=== PATIENT | male | born 1935 | race Caucasian/White ===

== ENCOUNTER 2016-10-01 07:32 | Outpatient (CLI) | payer MEDICARE, OTHER ==
[2015-02-16 22:47] VITALS: BP 126/70
[2016-10-01 08:16] LABS: BASOPHILS % 0.4 (0.0-1.5); EOSINOPHILS % 6.3 % (0.0-6.8); MEAN CORPUSCULAR VOLUME 96.8 fl (80.0-100.0); NEUTROPHILS # 4.5 # k/uL (1.4-7.7)
[2016-10-01 08:48] LABS: eGFR (African) > 60; eGFR (Non-African) > 60
== END 2016-10-01 07:33 ==
LOC: LAB 07:32
PROVIDERS: ATTEND Family Medicine
DX: I10 Essential (primary) hypertension (principal); R05 Cough
CPT/HCPCS: 36415; 80053; 85025

== ENCOUNTER 2017-06-11 14:47 | Outpatient (CLI) | payer MEDICARE, OTHER ==
[2015-02-16 22:47] VITALS: BP 126/70
[2017-06-11 15:04] LABS: BASOPHILS % 0.3 (0.0-1.5); MEAN CORPUSCULAR HEMOGLOBIN 33.2 pg (28.0-34.0); MEAN CORPUSCULAR VOLUME 95.5 fl (80.0-100.0); MONOCYTES % 5.7 % (0.0-11.0); NEUTROPHILS # 4.5 # k/uL (1.4-7.7)
[2017-06-11 15:27] LABS: eGFR (African) > 60; eGFR (Non-African) > 60
--- NOTE | 2017-06-11 16:44 | Diagnostic Imaging Report ---
LE ALVARES [facility] [address] [facility] [address] [address] Report Submission Date: Jun 11, 2017 3:31:11 PM ELECTRICIAN REFINERY Patient Study Name: YANDEL BEST Date: Jun 11, 2017 3:12:49 PM ELECTRICIAN REFINERY Modality Type: DX Gender: M Description: CHEST : 33 Institution: [facility] Physician: LE ALVARES Examination: PA and lateral History: Evaluate lungs. SOA, COUGH X 2 MONTHS (Hx) Comparison exam: None available. Findings: PA and lateral views of the chest demonstrates a normal cardiac and mediastinal silhouette. Elevated right hemidiaphragm. Vascular calcifications involving the aortic arch. Right lower lung parenchymal scarring. Lung tam without focal infiltrate. No blunting of the costophrenic margins. Right-sided pacemaker. Articular degenerative changes. Impression: Parenchymal scarring. No acute appearing pulmonary process. Electronically signed on Jun 11, 2017 3:31:11 PM ELECTRICIAN REFINERY by: Jason SOFIA
== END 2017-06-11 14:55 ==
LOC: RT 14:47
PROVIDERS: ATTEND Family Medicine
DX: R06.02 Shortness of breath (principal); R53.83 Other fatigue
CPT/HCPCS: 36415; 71046; 80053; 84443; 85025

== ENCOUNTER 2018-07-22 09:49 | Outpatient (CLI) | payer MEDICARE, OTHER ==
[2015-02-16 22:47] VITALS: BP 126/70
--- NOTE | 2018-07-22 10:41 | Diagnostic Imaging Report ---
LE ALVARES [facility] [address] [facility].[address] [address] Report Submission Date: Jul 22, 2018 10:38:00 AM CDT Patient Study Name: YANDEL BEST Date: Jul 22, 2018 9:59:22 AM CDT Modality Type: DX Gender: M Description: RIBS UNILAT 2 VIEWS : 33 Institution: [facility] Physician: LE ALVARES Examination: Plain film right ribs History: Injury Findings: 5 views of the ribs demonstrates normal cortical margins. No fracture or dislocation. Linear scarring right lower lung. Elevated right hemidiaphragm. Right cardiac pacemaker. Right shoulder degenerative changes. Impression: No acute appearing rib fracture/abnormality. Electronically signed on Jul 22, 2018 10:38:00 AM CDT by: Jason SOFIA
== END 2018-07-22 09:50 ==
LOC: RAD 09:49
PROVIDERS: ATTEND Family Medicine
DX: R07.81 Pleurodynia (principal)
CPT/HCPCS: 71100

== ENCOUNTER 2019-03-03 11:04 | Outpatient (CLI) | payer MEDICARE, OTHER ==
[2015-02-16 22:47] VITALS: BP 126/70
[2019-03-03 11:19] LABS: BASOPHILS % 0.4 % (0.0-1.5); NEUTROPHILS # 5.9 # k/uL (1.4-7.7)
[2019-03-03 12:03] LABS: eGFR (Non-African) 52
== END 2019-03-03 11:09 ==
LOC: LAB 11:04
PROVIDERS: ATTEND Family Medicine
DX: R53.83 Other fatigue (principal)
CPT/HCPCS: 36415; 80053; 84443; 85025